=== PATIENT | male | born 1980 | race Two or more races ===

== ENCOUNTER 2017-05-29 14:36 | Emergency (ER) | payer SELFPAY ==
[~2017-05-29] VITALS: Ht 172.7 cm; Wt 63.5 kg
[2017-05-29 14:43] VITALS: BP 110/80
== END 2017-05-29 15:00 | disposition left against medical advice (07) ==
LOC: ER 14:50
DX: S69.92XA Unspecified injury of left wrist, hand and finger(s), initial encounter (principal); Z53.21 Procedure and treatment not carried out due to patient leaving prior to being seen by health care provider; X58.XXXA Exposure to other specified factors, initial encounter; Y93.89 Activity, other specified; Y99.8 Other external cause status; Y92.89 Other specified places as the place of occurrence of the external cause